=== PATIENT | female | born 1935 | race Caucasian/White ===

== ENCOUNTER 2017-02-22 14:13 | Emergency (ER) | payer MEDICARE, BC ==
--- NOTE | ~2017-02-22 | CR206 ---
[facility] A Service of [facility] / [facility] RADIOLOGY TEXT RESULTS PATIENT: DEYANIRA ESCALANTE LOCATION: SED : 37 UNIT #: [id number] AGE: [address]: Basilio Sanders MD SEX: F ORDER DR: [id number] [place] [id number] E MR#: [id number] Acc #: [id number] NAME: DEYANIRA ESCALANTE : 1935 SEX: F STUDY DATE/TIME: 02/22/2017 13:59 UNIT: SED ROOM: STUDY DESCRIPTION: CR Pelvis 1 or 2 Views Attending Physician: Basilio Sanders M.D. Ordering Physician: Basilio Sanders M.D. Primary Care Physician: Erick Mon M.D. MEDICAL IMAGING REPORT This report is preliminary unless electronic signature is present. EXAM AP pelvis HISTORY Fell; complains of pelvic and hip pain. Fell 2 days ago. FINDINGS AP pelvis demonstrates postoperative changes from ORIF of a left subcapital femoral neck fracture. Advanced arthritic changes seen in the right hip. No acute fracture or dislocation. Probable old left inferior pubic ramus fracture. Degenerative changes, lower lumbar spine. Soft tissues unremarkable. IMPRESSION 1. No definite acute fracture of deformity. Patient is status post ORIF of an apparent left subcapital femoral neck fracture. I suspect there is also an old left inferior pubic ramus fracture. 2. Moderate arthritic changes, right hip. Dictated by... Arvind Ricardo M.D. THIS IS AN ELECTRONICALLY VERIFIED REPORT Arvind Ricardo M.D. at 02/23/2017 7:33 AM CHRISTEL/siobhan TD: 02/22/2017 15:40 JOB #: [id number] MEDICAL IMAGING REPORT Page 1 of 1
--- NOTE | ~2017-02-22 | CR106 ---
[facility]. [facility] A Service of [facility] RADIOLOGY TEXT RESULTS PATIENT: DEYANIRA ESCALANTE LOCATION: SED : 37 UNIT #: [id number] AGE: [address]: Basilio Sanders MD SEX: F ORDER DR: [id number] [address] [address] [id number] E MR#: [id number] Acc #: [id number] NAME: DEYANIRA ESCALANTE : 1935 SEX: F STUDY DATE/TIME: 02/22/2017 13:59 UNIT: SED ROOM: STUDY DESCRIPTION: CR Femur 2 Views Lt Attending Physician: Basilio Sanders M.D. Ordering Physician: Basilio Sanders M.D. Primary Care Physician: Erick Mon M.D. MEDICAL IMAGING REPORT This report is preliminary unless electronic signature is present. EXAM Left femur 2 views HISTORY Left upper leg pain. Fell 2 days ago. FINDINGS Routine views of the left femur demonstrates 4 cannulated screws in the proximal left femur from apparent ORIF of a subcapital femoral neck fracture. Arthritic changes are seen in the hip joint. No acute fracture or dislocation. No significant degenerative change of the knee joint. Osteopenia. Arterial vascular calcifications noted. IMPRESSION Status post ORIF of an apparent healed left femoral neck or subcapital femoral neck fracture. No acute findings. Dictated by... Arvind Ricardo M.D. THIS IS AN ELECTRONICALLY VERIFIED REPORT Arvind Ricardo M.D. at 02/23/2017 7:33 AM Inessa TD: 02/22/2017 15:03 JOB #: [id number] MEDICAL IMAGING REPORT Page 1 of 1
[~2017-02-22 14:13] MED LIST: ACTOS PO; ACTOS15 MG PO; ALLEGRA PO; ALTACE PO; ASPIRIN PO; CALCIUM + D PO; COREG PO; COZAAR25 MG PO; DYMISTA NASAL S23 GM NS; GLUCOTROL PO; HUMALOG MI100 UNIT/1 SUBQ; HYDROCHLOROTH12.5 M1 PO; LANTUS100 U/ML SUBQ; LIPITOR PO; METFORMIN PO; NEURONTIN PO; PRAVASTATIN SOD40 MG PO; PYRIDIUM100 MG PO; RECLAST IV; RHINOCORT AQUA8.6 GM; SYMBICORT INH; TRADJENTA5 MG PO; TYLENOL #3 PO; VITAMIN C PO; VITAMIN D PO; [UNRECOGNIZED DRUG - OTHER]
== END 2017-02-22 15:37 | disposition home or self-care (01) ==
LOC: SED 14:13
DX: S70.12XA Contusion of left thigh, initial encounter (principal); I10 Essential (primary) hypertension; Z88.8 Allergy status to other drugs, medicaments and biological substances; E11.9 Type 2 diabetes mellitus without complications; W01.0XXA Fall on same level from slipping, tripping and stumbling without subsequent striking against object, initial encounter; Y92.9 Unspecified place or not applicable
CPT/HCPCS: 72170; 73552; 99284

== ENCOUNTER 2017-04-13 13:56 | Inpatient (IN) | payer MEDICARE, BC ==
--- NOTE | ~2017-04-13 | HP ---
Unit #: [id number] #: [id number] Patient: DEYANIRA ESCALANTE [id number] [address] [address] [id number] I MR#: [id number] NAME: DEYANIRA ESCALANTE. ROOM: 569 Age: 81 Sex: F Admission Date: 04/13/2017 : 1935 Attending Physician: Tejas Pena M.D. Primary Care Physician: Erick Mon M.D. HISTORY AND PHYSICAL HISTORY OF PRESENT ILLNESS 81-year-old white female with a history of type 2 diabetes mellitus, hypertension, hyperlipidemia, who was placed on Hyzaar about two weeks ago, developed ataxia. Labs were sent. Sodium was 122. Referred to the emergency room here, it is 120, and she was admitted for symptomatic hyponatremia. The patient has no other complaints on review of systems. ALLERGIES She has stated intolerance to Altace. MEDICATIONS Her medications prior to admission: 1. Tradjenta 5 mg daily. 2. Hyzaar 100/25, one daily. 3. Gabapentin 400 mg q.i.d. 4. Pravastatin 40 mg daily. 5. Metformin 1000 mg b.i.d. 6. Actos 15 mg daily. 7. Coreg 12.5 mg b.i.d. 8. Iron 325 mg t.i.d. 9. Aspirin 81 mg q. h.s. 10. Humalog mix 75/25, six units before breakfast and 18 before dinner. 11. Dymista nasal spray daily. 12. Citracal 200 mg t.i.d. PREVIOUS SURGERIES 1. Left hip. 2. Esophageal surgery. 3. Right knee x2. 4. Tubal ligation. PAST MEDICAL HISTORY 1. GE reflux disease. 2. Hypertension. 3. Type 2 diabetes mellitus. 4. Hyperlipidemia. SOCIAL HISTORY Nonsmoker. Occasional alcohol. No street drugs. FAMILY HISTORY Noncontributory. PHYSICAL EXAMINATION Unit #: [id number] #: [id number] Patient: DEYANIRA ESCALANTE GENERAL: Awake, alert, oriented x3, in no acute distress. VITAL SIGNS: Afebrile. Pulse 79, respirations 18, blood pressure 152/55. Room air O2 sat 96%. HEENT: Unremarkable. NECK: Supple without JVD, bruits, adenopathy or thyromegaly. CHEST: Clear to auscultation. HEART: Regular rate and rhythm without any murmurs, rubs or gallops. ABDOMEN: Soft, nondistended, nontender with positive bowel sounds and no hepatosplenomegaly. EXTREMITIES: No clubbing, cyanosis or edema. /RECTAL: Deferred. NEUROLOGICAL: Grossly intact. DIAGNOSTIC STUDIES LABORATORY: CBC - normal except for hemoglobin of 11.4, sodium 120, random blood sugar 390. Urine osmolality 275. TSH is 0.99. Urine sodium 38, urine osmolality 172. IMPRESSION 1. Hyponatremia. 2. Ataxia secondary to #1. 3. Type 2 diabetes mellitus. 4. Hypertension. 5. Hyperlipidemia. 6. Anemia, which appears to be chronic. PLAN DC hydrochlorothiazide, fluid restriction. Nephrology to consult. Follow sodium levels which are pending this morning. DVT prophylaxis. Accu-Cheks and low dose sliding scale insulin. Further evaluation pending results of above. Dictated by Tejas Pena M.D. SHERMAN/chris TD: 04/14/2017 07:50 JOB #: [id number] HISTORY AND PHYSICAL Page 1 of 1 X Tejas Pena MD X HISTORY AND PHYSICAL
--- NOTE | ~2017-04-13 | CO ---
Unit #: [id number] #: [id number] Patient: SUSAN ESCALANTE [id number] [address] [place], [place] [address] [id number] I MR#: [id number] NAME: SUSAN ESCALANTE ROOM: 569 Age: 81 Sex: F Admission Date: 04/13/2017 : 1935 Attending Physician: Tejas Pena M.D. Primary Care Physician: Erick Mon M.D. Consultation Date: 04/14/2017 CONSULTATION REPORT REASON FOR CONSULTATION Low sodium. Thank you very much for asking me to see this patient in consultation. HISTORY OF PRESENT ILLNESS Ms. Susan Escalante is a 81-year-old female, who has a history of diabetes and hypertension, who went to Dr. Mon's office several weeks ago with worsening blood pressure, which time her losartan was switched over to Hizaar. She apparently on Tuesday this week had some ataxia and just feeling tired and weak. She had blood work done that showed a sodium of 122 there. She was sent to the hospital, where she was admitted last night. Her Hizaar was converted back to losartan. Her sodium was 120 last night and 133 this morning. She feels good. She is not having any symptoms of anything. No chest pain or shortness of breath. No dizziness. No ataxia. No urinary problems. No swelling. She also does tell me that she takes a few Advil a day. She also states she drinks a lot of tea. PAST MEDICAL HISTORY History of left femoral fracture and repair in the past, history of diabetes mellitus, history of hypertension, hyperlipidemia, history of gastroesophageal reflux disease, and history of knee surgery on the right x2. ALLERGIES Include intolerance to MARIA DOLORES inhibitors. MEDICATIONS At home, include; Tradjenta, Hyzaar 100/25, gabapentin 400 mg q.i.d., pravastatin, metformin 1000 mg b.i.d., Actos 15 mg a day, Coreg 12.5 mg b.i.d., aspirin, insulin, and calcium pill. REVIEW OF SYSTEMS As mentioned in the HPI. Otherwise, she denies any other problems. FAMILY HISTORY No history of sodium problems. SOCIAL HISTORY She does not smoke. Maybe one glass of wine a month. PHYSICAL EXAMINATION GENERAL: She is alert and oriented. Unit #: [id number] #: [id number] Patient: SUSAN ESCALANTE VITAL SIGNS: Temperature is 98.8, pulse is 61 to 79, and blood pressure 135 to 184 over 40s to 60s. HEENT: She is normocephalic and atraumatic. Pupils are equal, round, and reactive to light. Extraocular muscles are intact. Hearing appears to be normal. Mouth is clear. No erythema. No exudate. NECK: Supple. No JVD. CARDIAC: She has regular rate and rhythm without a rub. No S3 or S4. LUNGS: Clear bilaterally. No wheezes, rhonchi, or rales. ABDOMEN: Bowel sounds are positive. Nontender. Soft. No mass felt. No hepatomegaly noted. EXTREMITIES: She has no edema, clubbing, or cyanosis. DIAGNOSTIC STUDIES LABORATORY RESULTS: Sodium is 133 today from 120, potassium 4.4, chloride is 102, bicarb is 24, BUN 10, creatinine 0.5, glucose 135 now and was 390 when she came in, and calcium is 9.1. TSH 0.99. Urine osmolarity is 172. Urine sodium is 38. Hemoglobin 11.4, white count 5800, and platelets 209,000. ASSESSMENT AND PLAN Hyponatremia, certainly this lady probably has thiazide-induced hyponatremia as well as potentially, her sugar was high, then also did some shifting of her sodium from extracellular to intracellular. Certainly, her urine osmolarity is not significantly elevated, so I really doubt if she has any type of syndrome of inappropriate antidiuretic hormone type picture. I did ask her to maybe try to keep her fluid intake a little less if she is drinking a lot of tea, also sparingly nonsteroidals and hopefully off the hydrochlorothiazide. Her sodium will improve more and remain that way as an outpatient. Certainly, her TSH is normal. As she is here, tomorrow we will go ahead and repeat a BMP as well as a cortisol level, but probably okay to go home whenever from the renal standpoint just to again stay off thiazide-type diuretics and would recommend getting a repeat BMP in 1 to 2 weeks with primary. Dictated by.Tg Briscoe M.D. STEPHANIE/bill TD: 04/15/2017 08:14 JOB #: [id number] CONSULTATION REPORT Page 1 of 1 X Mere Briscoe MD CONSULTATION REPORT
--- NOTE | ~2017-04-13 | DS ---
Unit #: [id number] #: [id number] Patient: DEYANIRA ESCALANTE [id number] [address] [place], [place] [address] [id number] I MR#: [id number] NAME: DEYANIRA ESCALANTE ROOM: 56 Age: 81 Sex: F Admission Date: 04/13/2017 : 1935 Discharge Date: 04/15/2017 Attending Physician: Tejas Pena M.D. Primary Care Physician: Erick Mon M.D. DISCHARGE SUMMARY PRINCIPAL DISCHARGE DIAGNOSES 1. Hyponatremia secondary to diuretic therapy for hypertension. 2. Ataxia secondary to hyponatremia. 3. Type 2 diabetes mellitus. 4. Hypertension. 5. Hyperlipidemia. 6. Chronic anemia. CONSULTANTS Dr. Briscoe. PROCEDURES None. REASON FOR HOSPITALIZATION The patient is a 81-year-old white female with a history of type 2 diabetes mellitus, hypertension, hyperlipidemia, who was placed on Hyzaar about two weeks prior to admission. Prior to that, she was on Cozaar 50 mg daily. Her Hyzaar was 100/25. She developed ataxia. Labs were sent. Sodium was 122. She was referred to the emergency room there. It was 120 and she was admitted for symptomatic hyponatremia. On admission, her hydrochlorothiazide was discontinued. She was placed on a fluid restriction. CBC on admission was normal except for hemoglobin of 11.4. Blood sugar was 390 on admission, random. Additional labs were sent. Serum osmolality was 279. TSH was normal at 0.99. Urine sodium was 38. Urine osmolality was 172. BMP the following day showed a sodium of 133, this morning it is 135. Cortisol level was checked in the a.m. and was 11, within normal limits. Magnesium was checked and within normal limits at 1.7. She is being discharged home on her previous meds less the hydrochlorothiazide and on Cozaar 100 mg daily. She was to follow up with Dr. Mon in one week with a BMP. Her other current meds: 1. Tradjenta 5 mg p.o. daily. 2. Cozaar 100 mg daily. 3. Gabapentin 400 mg, four times daily. 4. Pravastatin 40 mg daily. 5. Metformin 1000 mg b.i.d. 6. Actos 15 mg daily. 7. Coreg 12.5 mg b.i.d. 8. Iron 325 mg t.i.d. 9. Aspirin 81 mg daily. 10. Humalog 75, 6 units at breakfast and 18 with dinner. Unit #: [id number] #: [id number] Patient: DEYANIRA ESCALANTE 11. Dymista nasal spray daily. 12. Citracal 200 mg t.i.d. She is on a regular constant carb diet. Dictated by... Tejas Pena M.D. SHERMAN/chris TD: 04/15/2017 12:53 JOB #: [id number] DISCHARGE SUMMARY Page 1 of 1 X Tejas Pena MD X DISCHARGE SUMMARY
[2017-04-13 14:46] LABS: BASOPHIL% 0.6 % (0-2.5); EOSINOPHIL# 0.1 X10e3 (0-0.7); EOSINOPHIL% 2.4 % (0.0-7.0); HEMATOCRIT 35.1 % (35.0-45.0); HEMOGLOBIN 11.4 gm/dL (12.0-16.0); LYMPHOCYTE# 0.8 X10e3 (1.0-3.5); LYMPHOCYTE% 15.2 % (17.0-45.0); MEAN CELL VOLUME 84.5 FL (83-96); MEAN CORPUSCULAR HEMOGLOBIN 27.4 PG (28-34); MEAN CORPUSCULAR HGB CONC 32.5 g/dL (30-36); MEAN PLATELET VOLUME 7.8 FL (6.5-11.5); MONOCYTE# 0.5 X10e3 (0-1.0); MONOCYTE% 8.6 % (3.0-12.0); NEUTROPHIL# 3.8 X10e3 (1.5-7.1); NEUTROPHIL% 73.2 % (40-75); PLATELET COUNT 209 X10e3 (140-420); RED BLOOD COUNT 4.15 X10e (3.90-5.30); RED CELL DISTRIBUTION WIDTH 17.6 % (11.0-15.5); WHITE BLOOD COUNT 5.2 X10e3 (4.0-10.5)
[2017-04-13 14:53] LABS: DIFF IND NO
[2017-04-13 15:10] LABS: BUN/CREATININE RATIO 18.33; CALCIUM SERUM 8.8 mg/dL (8.4-10.2); CREATININE SERUM 0.6 mg/dL (0.6-1.4); GLOM FILT RATE Estimated 86.7 mL/min (>60); POTASSIUM 4.3 mmol/L (3.5-5.1)
[2017-04-13] MEDS ORDERED: PATIENT'S PHARMACY (15:42)
[2017-04-13] MEDS ORDERED: GABAPENTIN400 M2 PO (15:42)
[2017-04-13] MEDS ORDERED: LOSARTAN-HCTZ1 EAC1 PO (15:42)
[2017-04-13] MEDS ORDERED: TRADJENTA5 MG PO (15:42)
[2017-04-13] MEDS ORDERED: LORTAB 5-325 M1 EACH PO (15:43)
[2017-04-13] MEDS ORDERED: METFORMIN HCL500 M3 PO (15:43)
[2017-04-13] MEDS ORDERED: PRAVASTATIN SOD40 MG PO (15:43)
[2017-04-13] MEDS ORDERED: COREG12.5 M1 PO (15:44)
[2017-04-13] MEDS ORDERED: FERRO-TIME325 MG PO (15:44)
[2017-04-13] MEDS ORDERED: ACTOS15 MG PO (15:44)
[2017-04-13] MEDS ORDERED: ASPIRIN81 M2 PO (16:41)
[2017-04-13] MEDS ORDERED: HUMALOG MI100 UNIT/2 (16:42)
[2017-04-13] MEDS ORDERED: DYMISTA NASAL S23 GM (16:42)
[2017-04-13] MEDS ORDERED: VITAMIN D31000 UNIT PO (16:42)
[2017-04-13] MEDS ORDERED: CITRACAL200 MG PO (16:43)
[2017-04-13 23:28] LABS: SODIUM URINE RANDOM 38 mmol/L
[2017-04-13 23:48] LABS: OSMOLALITY,URINE 172 mOsmo/kg (250-900)
[2017-04-14 07:30] LABS: CALCIUM SERUM 9.1 mg/dL (8.4-10.2); CREATININE SERUM 0.5 mg/dL (0.6-1.4); GLOM FILT RATE Estimated 92.1 mL/min (>60); POTASSIUM 4.4 mmol/L (3.5-5.1)
[2017-04-15 07:09] LABS: CALCIUM SERUM 8.5 mg/dL (8.4-10.2); CREATININE SERUM 0.4 mg/dL (0.6-1.4); GLOM FILT RATE Estimated 99.1 mL/min (>60); MAGNESIUM 1.7 mg/dL (1.6-3.0); POTASSIUM 4.3 mmol/L (3.5-5.1)
[2017-04-15] MEDS ORDERED: ACETAMINOPHEN PO (08:20)
[2017-04-15] MEDS ORDERED: LOSARTAN POTASS50 MG PO (08:21)
== END 2017-04-15 13:06 | disposition home or self-care (01) | DRG 641 ==
LOC: CED 13:56 → CEDOF 18:35 → CED 19:28 → CEDOF 19:28 → C5C 21:11
PROVIDERS: Emergency Medicine; Internal Medicine
DX: E87.1 Hypo-osmolality and hyponatremia (principal); E11.9 Type 2 diabetes mellitus without complications; D64.9 Anemia, unspecified; I10 Essential (primary) hypertension; E78.5 Hyperlipidemia, unspecified; R27.0 Ataxia, unspecified; T50.2X5A Adverse effect of carbonic-anhydrase inhibitors, benzothiadiazides and other diuretics, initial encounter; Z79.82 Long term (current) use of aspirin; Z79.4 Long term (current) use of insulin; K21.9 Gastro-esophageal reflux disease without esophagitis
CPT/HCPCS: 36415; 80048; 82533; 82947; 83735; 83930; 83935; 84300; 84443; 85025; 96360; 99285; J1650; J1815